=== PATIENT | male | born 1950 | race Hispanic/Latino ===

== ENCOUNTER 2018-06-14 09:35 | Emergency (ER) | payer MEDICARE ==
[2018-06-14 09:52] VITALS: BP 141/68
[2018-06-14] MEDS ORDERED: DECADRON IM ONE (10:36)
[2018-06-14] MEDS ORDERED: TORADOL IM ONE (10:36)
--- NOTE | 2018-06-14 10:39 | Emergency Department Report ---
ED Back Pain/Injury HPI - General Chief Complaint: Neck Pain/Injury Stated Complaint: NECK/SHOULDER/BACK PAIN Time Seen by Provider: 06/14/18 10:35 Source: patient Limitations: No Limitations - History of Present Illness Initial Comments: Patient is a pleasant 68-year-old who comes to the ER with acute and chronic back pain. He states that in the past he was in pain management program but is no longer. He used to take Percocet and tramadol. He sees Dr. Johnson. He went to see him yesterday but because he hasn't seen him in some time day or treating him as a new patient and could not see him for a couple weeks. So he is come to the ER. He denies any new trauma. Patient denies signs and symptoms of cauda equina. No urinary symptoms. No hematuria. He has on his person to disc previous MRIs delineating his cause of his chronic back pain. Patient is not here requesting nor wanting narcotic medications. He states that they make him feel bad and that's why he went off years ago. Patient does admit to cigarette smoking, occasional alcohol and occasional marijuana. -: Gradual, year(s) Similar Symptoms Previously: Yes Place: home Associated Symptoms: denies other symptoms - Related Data Home Medications Medication Instructions Recorded Confirmed Last Taken oxyCODONE 7.5 mg PO PRN 07/21/15 07/29/15 06/21/15 NexIUM 24Hr 20 mg PO DAILY 07/29/15 07/29/15 07/28/15 20 Previous Rx's Medication Instructions Recorded Last Taken Type predniSONE [Deltasone] 20 mg PO DAILY #5 tablet 06/14/18 Unknown Rx traMADol [Ultram] 50 mg PO Q6HR PRN #10 tablet 06/14/18 Unknown Rx Allergies Allergy/AdvReac Type Severity Reaction Status Date / Time No Known Allergies Allergy Unverified 07/21/15 08:54 ED Review of Systems ROS: Stated complaint: NECK/SHOULDER/BACK PAIN Other details as noted in HPI Comment: All other systems reviewed and negative ED Past Medical Hx - Past Medical History chronic pain ED Back Pain Physical Exam - Exam General: Vital signs noted. No distress. Alert and acting appropriately. Back/Abdomen: No Abdominal Tenderness, No Perithoracic Tenderness, No Perilumbar Tenderness, No Sacroiliac Tenderness, No Flank Tenderness, No Straight Leg Raise Pain Neuro: Yes Normal Sensation, Yes Normal DTR's, Yes Normal Gait, No Motor Weakness ED Course Vital Signs 06/14/18 09:50 Temperature 97.8 F Pulse Rate 85 Respiratory 18 Rate Blood Pressure 141/68 O2 Sat by Pulse 95 Oximetry ED Medical Decision Making - Medical Decision Making simple back pain- chronic in nature has pcp appnt set up medicated here with non narcotics dc home with dc plan of care Vital Signs 06/14/18 06/14/18 09:50 11:04 Temperature 97.8 F Pulse Rate 85 Respiratory 18 16 Rate Blood Pressure 141/68 O2 Sat by Pulse 95 Oximetry Critical care attestation.: If time is entered above; I have spent that time in minutes in the direct care of this critically ill patient, excluding procedure time. ED Disposition Clinical Impression: Chronic pain Disposition: DC-01 TO HOME OR SELFCARE Is pt being admited?: No Does the pt Need Aspirin: No Condition: Stable Instructions: Chronic Back Pain (ED) Additional Instructions: DIET TOLERATED MEDS ORDERED TODAY IN ER FOLLOW INSTRUCTIONS ON THE BOTTLE FOLLOW UP PCP WITHIN 48 HOURS TO ENSURE YOU ARE GETTING BETTER ACTIVITY TOLERATED MOTRIN OR TYLENOL FOR PAIN OR FEVER RETURN TO THE ER FOR WORSENING SYMPTOMS NOT RELIEVED BY YOUR MEDICATIONS. Prescriptions: predniSONE [Deltasone] 20 mg PO DAILY #5 tablet traMADol [Ultram] 50 mg PO Q6HR PRN #10 tablet PRN Reason: Pain Referrals: BRITANY BARRAZA MD [Staff Physician] - 3-5 Days Time of Disposition: 10:37
[2018-06-14] MEDS ORDERED: SOLU-Medrol IM ONE (10:53)
[2018-06-14] MEDS ORDERED: DEPO-Medrol ONE (10:55)
[2018-06-14] MEDS ORDERED: DEPO-Medrol IM ONE (11:03)
[2018-06-14] MEDS ORDERED: DEPO-PROVERA (CONTRACEPTION) IM ONE (11:36)
== END 2018-06-14 11:18 | disposition home or self-care (01) ==
LOC: ED 09:35
DX: G89.29 Other chronic pain (principal); M54.9 Dorsalgia, unspecified
CPT/HCPCS: 96372; 99282; J1040; J1100; J1885; J1050

== ENCOUNTER 2020-03-18 07:38 | Day surgery (SDC) | payer MEDICARE ==
[~2020-03-18 07:38] MED LIST: SODIUM CHLORIDE 0.9% 1000 ML 1,000 ML IV SCH
--- NOTE | 2020-03-18 08:28 | Anesthesia Day of Surgery ---
Anesthesia Day of Surgery - Day of Surgery Patient Examined: Yes Patient H&P Reviewed: Yes Patient is NPO: Yes
--- NOTE | 2020-03-18 08:28 | Anesthesia Consultation ---
Anesthesia Consult and Med Hx Date of service: 03/18/20 - Airway Anesthetic Teeth Evaluation: Poor (multiple loose and decaying lower teeth), Edentulous (upper) ROM Head & Neck: Adequate Mental/Hyoid Distance: Adequate Mallampati Class: Class II Intubation Access Assessment: Probably Good - Pulmonary Exam CTA: Yes - Cardiac Exam Cardiac Exam: RRR - Pre-Operative Health Status ASA Pre-Surgery Classification: ASA3 Proposed Anesthetic Plan: MAC - Pulmonary Hx Smoking: Yes Hx Respiratory Symptoms: No COPD: Yes Home Oxygen Therapy: No - Cardiovascular System Hx Hypertension: No Hx Heart Attack/AMI: No - Central Nervous System CVA: No - Gastrointestinal Hx Gastroesophageal Reflux Disease: No - Endocrine Hx Renal Disease: No Hx Liver Disease: No Hx Non-Insulin Dependent Diabetes: Yes Hx Thyroid Disease: No - Other Systems Hx Obesity: No
[2020-03-18] MEDS ORDERED: LIDOCAINE MPF (2%) 20 MG/1 ML VIAL 5 ML ONE (08:57)
[2020-03-18] MEDS ORDERED: propofoL 200 MG/20 ML VIAL IV ONE ×2 (08:58→09:16)
--- NOTE | 2020-03-18 09:32 | Short Stay Summary ---
Short Stay Documentation Date of service: 03/18/20 - History H&P: obtained from office - Allergies and Medications Current Medications: Allergies No Known Allergies Allergy (Unverified 07/21/15 08:54) Home Medications Medication Instructions Recorded Confirmed Last Taken Type glipiZIDE 10 mg PO DAILY 03/17/20 03/17/20 Unknown History traMADoL 50 mg PO PRN 03/17/20 03/17/20 Unknown History Active Medications Sodium Chloride (Nacl 0.9% 1000 Ml) 1,000 mls @ 50 mls/hr IV DIRECT LOW - Brief post op/procedure progress note Date of procedure: 03/18/20 Findings: see dictation Estimated blood loss: none Pathology: list (diminutive descending colon polyp) Specimen disposition: to lab Condition: stable - Disposition Condition at discharge: Good Disposition: DC-01 TO HOME OR SELFCARE - Discharge Diagnoses (1) History of colon polyps Status: Acute Short Stay Discharge Plan Activity: other (no driving for 24 hours) Weight Bearing Status: Weight Bear as Tolerated Diet: regular Follow up with: HIPOLITO SALINAS MD [Primary Care Provider] - 7 Days
--- NOTE | 2020-03-18 09:35 | Operative Report ---
Operative Report Operative Report: Date of procedure: 03/18/2020 Preprocedure diagnosis: History of colon polyps, more than 3 adenomas at the [facility] study 5 years ago. Post procedure diagnosis: Diminutive descending colon polyp, scattered diverticula of the descending and sigmoid colon. Procedure: Colonoscopy to the cecum with cold forceps biopsy polypectomy of the descending polyp Endoscopist: Dr. Whittaker Anesthesia: Monitored anesthesia care per anesthesia department Estimated blood loss: 0 Medications: Monitored anesthesia care. See separate report by anesthesia for details. After careful discussion of the nature and purpose of the procedure as well as details of the technique risks benefits and alternatives the patient gave consent. Please see recent history and physical from the office. The patient was placed in the left lateral decubitus position and medicated per anesthesia. A rectal exam was performed sphincter tone was normal there were no masses palpable. The LLLern 570 scope was passed transanally and advanced under continuous direct vision without difficulty to the cecum. The colon was well prepared. The cecum was normal. The ascending colon was normal and on forward and retroflexed views. The transverse colon was normal. There were scattered diverticula throughout the descending and sigmoid colon. A sessile 4 mm descending polyp was present. The polyp was removed with 2 bites of the cold forceps. The rectum was normal on forward and retroflexed views. The procedure was well-tolerated overall and the patient was observed in recovery. Conclusions: Diminutive descending colon polyp, scattered diverticula of the left colon. Plan: Await pathology. Repeat colonoscopy in 5 years. Signed electronically: Phuc Whittaker M.D.
[2020-03-18 09:56] VITALS: BP 127/61
--- NOTE | 2020-03-18 10:53 | Post Anesthesia Evaluation ---
- Post Anesthesia Evaluation Patient Participated: Yes Airway Patent: Yes Stable Respiratory Function: Yes Nausea/Vomiting: No Temp > 96.8F: Yes Pain Manageable: Yes Adequeate Hydration: Yes Anesthesia Complications: No
== END 2020-03-18 10:40 | disposition home or self-care (01) ==
LOC: GIO 07:38
PROVIDERS: ATTEND Internal Medicine Gastroenterology
DX: Z12.11 Encounter for screening for malignant neoplasm of colon (principal); K57.30 Diverticulosis of large intestine without perforation or abscess without bleeding; D12.4 Benign neoplasm of descending colon; F17.210 Nicotine dependence, cigarettes, uncomplicated; K29.70 Gastritis, unspecified, without bleeding; K29.80 Duodenitis without bleeding; K22.70 Barrett's esophagus without dysplasia; J44.9 Chronic obstructive pulmonary disease, unspecified; K21.9 Gastro-esophageal reflux disease without esophagitis; M19.90 Unspecified osteoarthritis, unspecified site; E11.9 Type 2 diabetes mellitus without complications; Z86.010 Personal history of colon polyps; Z79.899 Other long term (current) drug therapy
CPT/HCPCS: 45380; 82962; 88305; J2704; J7030